=== PATIENT | female | born 1945 | race Two or more races ===

== ENCOUNTER 2016-06-14 10:00 | Inpatient (IN) | payer MEDICARE, BC ==
[~2016-06-14] VITALS: Ht 158.8 cm; Wt 67.7 kg
--- NOTE | ~2016-06-14 | OR ---
[facility]GE[facility] 70 Y [address] ROOM: [place] [address] LOCATION: [facility] ADMIT DATE: 06/26/2016 OR/Procedure Report DISCHARGE DATE: FAMILY PHYSICIAN: Tashi Richmond MD ATTENDING PHYSICIAN: DIXON PRIEST SURGEON: Dixon Priest MD BANDOLEER PACKER: Sanjeev Barrera PA-C. DATE OF PROCEDURE: 06/26/2016 PREOPERATIVE DIAGNOSIS: Left end-stage primary tricompartmental osteoarthritis. POSTOPERATIVE DIAGNOSIS: Left end-stage primary tricompartmental osteoarthritis. PROCEDURE: Left total knee arthroplasty. ANESTHESIA: Sedation with spinal and peripheral nerve blocks. ESTIMATED BLOOD LOSS: Less than 50. FLUIDS: See Anesthesia report. TOURNIQUET: Left proximal thigh at 250 mmHg for 93 minutes. SPECIMEN: None. COMPLICATIONS: None. DISPOSITION: Stable in PACU. COUNTS: All counts were correct. IMPLANTS: Pearl left total knee arthroplasty, Triathlon posterior stabilized size 1 femoral component, size 2 tibia baseplate, size 29 asymmetric patella, and size 2 11-mm thick X3 polyethylene, Pearl antibiotic Simplex bone cement. INDICATIONS: Ms. Rodríguez is a pleasant 70-year-old female who underwent a left total knee arthroplasty today. The risks, benefits, and alternatives pursuing the surgical events were discussed with the patient in detail. I marked the left lower extremity indicating the correct surgical site. Anesthesia was consulted for their perioperative evaluation of the patient. OPERATIVE REPORT IN DETAIL: The patient was taken from the holding area to PATIENT'S NAME: [facility] AGE: 70 Y [address] ROOM: [place] [address] LOCATION: [facility] ADMIT DATE: 06/26/2016 OR/Procedure Report DISCHARGE DATE: FAMILY PHYSICIAN: Tashi Richmond MD ATTENDING PHYSICIAN: DIXON PRIEST the operating room. A time-out was performed. A spinal anesthetic was administered. Peripheral nerve blocks have also been administered. The patient received 1 g of Ancef antibiotic for perioperative prophylaxis. She was placed supine on the operating room table, and all other bony prominences were padded. A nonsterile tourniquet was placed in the proximal thigh and a U- drape was placed beneath it. The left lower extremity was then prepped and draped in a sterile fashion. I turned my attention to the left knee. An Esmarch was used to exsanguinate the limb, and the tourniquet was inflated to 250 mmHg. I began with a median parapatellar incision to address the left knee. The incision was carried through skin and subcu tissue. I incised the capsule sharply with a knife. There were advanced degenerative changes noted mostly on the medial femoral condyle and medial tibial plateau. The patella fat pad was removed. The cruciate ligaments were excised using a Bovie electrocautery device. The knee was subsequently dislocated. I removed the medial and lateral menisci. I began preparing my femur. I began with the distal femoral cut. I then transitioned and made my proximal tibia cut. I used a gap balancing block and found that the knee was in the correct mechanical alignment. I then finished preparing my femoral component. The size was a size 1. The patient does have a small femur. I then prepared the tibia. I then made the box cut on the femoral side. I then placed my trial components with a size 9 polyethylene liner. The knee was stable though a little bit loose with varus to valgus stress. I placed a size 11 polyethylene liner and took the knee through range of motion and it was found to be stable through 0 to 135 degrees of flexion. The patella tracked well. The collaterals were stable. I then prepared my patella using the patella jig. I sized approximately 9 mm from the patella. I drilled for and placed an asymmetric patella button. The knee was taken through range of motion and found it to be stable. The patella tracked well. All of the trial components were subsequently removed. The knee was copiously irrigated with normal sterile saline solution via pulsatile lavage. The final tibia components, followed by the femoral components were cemented into place. A size 11 trial polyethylene liner was placed to allow the cement to cure. The knee was brought out to full extension and pressure was placed across the heel. Excess cement had been removed as the implants were placed. I then cemented the patella button in place and was allowed to dry with a clamp on it. After the cement had cured, I went back and removed the trial polyethylene liner. Any excess cement was removed from the joint and around the components. I placed a final size 11 polyethylene liner. The knee was taken through range of motion and found to achieve full range of motion with good patella tracking. The wound was then copiously irrigated with normal sterile saline solution via pulsatile lavage. A Stratafix barbed suture was used to approximate the capsule followed by 0 Vicryl suture to approximate the deeper subcutaneous tissue followed by 2-0 Vicryl to approximate the PATIENT'S NAME: IRVING [facility] AGE: 70 Y [address] ROOM: [address] [address] LOCATION: [facility] ADMIT DATE: 06/26/2016 OR/Procedure Report DISCHARGE DATE: FAMILY PHYSICIAN: Tashi Richmond MD ATTENDING PHYSICIAN: DIXON PRIEST superficial and subcutaneous tissue and rivera were used for skin. A sterile Mepilex placed over the incision. The tourniquet was let down. Webril was wrapped on the leg from the foot all the way up to the proximal thigh along with an Devyn bandage. The patient was then transferred from the operating room table onto the stretcher and brought to the recovery room in stable condition. There were no intraoperative complications noted. Of note, my PA, Sanjeev Barrera PA-C, played an integral role in the intraoperative care of this patient. This included preoperative positioning, intraoperative expert retraction, and closing and dressing functions. IMPRESSION: The patient is status post left total knee arthroplasty. PLAN: The patient will be weightbearing as tolerated in the left lower extremity. Physical Therapy and Occupational Therapy will be consulted postoperatively for early ambulation and prevention of deconditioning. Postoperative antibiotics were administered per routine. Postoperative pain control will be in the form of Percocet and IV morphine as needed for pain. The patient's primary care provider will manage the patient's postoperative care. I will continue to monitor the patient closely in the postoperative period. We will obtain a postoperative x-ray in the PACU of the left knee. Subparagraph. MD JONATHON JENSEN/modl /[id number] d: 06/26/16 1712 t: 06/27/16 0952, OPERATIVE SUMMARY
--- NOTE | ~2016-06-14 | DS ---
[facility]GE[facility] 70 Y [address] ROOM: [address] [address] LOCATION: [facility] ADMIT DATE: 06/26/2016 Discharge Summary DISCHARGE DATE: 06/28/2016 FAMILY PHYSICIAN: Tashi Richmond MD ATTENDING PHYSICIAN: Dixon Priest PRIMARY DIAGNOSIS: Left end-stage primary tricompartmental osteoarthritis. SECONDARY DIAGNOSES: Hypertension, osteoporosis, venous insufficiency in bilateral lower extremities, and vitamin D deficiency. PROCEDURE: Left total knee arthroplasty. HISTORY: The patient is a 70-year-old female who presents with advanced left knee end-stage primary tricompartmental osteoarthritis and associated severely compromised activities of daily living. The patient has decided to proceed with total knee arthroplasty after having been thoroughly counseled regarding the risks, benefits, limitations, and alternatives. Please refer to the outpatient clinical notes and admission history and physical for this patient. HOSPITAL COURSE: The patient underwent a left total knee arthroplasty on June 26, 2016, by Dr. Priest without complications. The patient did receive a spinal anesthesia along with peripheral nerve blocks. The patient received 24 hours of perioperative prophylactic antibiotics and remained hemodynamically stable, neurovascularly intact throughout the entire hospital course. The postoperative prophylactic deep vein thrombosis prophylaxis consisted of Xarelto, early mobilization, and pneumatic compression devices. Daily physical therapy for gait training, transfer training, range of motion, and quadriceps isometric exercises were received. The patient progressed well in physical therapy. On the date of discharge, June 28, 2016, the incision at the knee was healing well and showed no signs of infection. DISPOSITION: Home. DISCHARGE ACTIVITIES: The patient is to bear weight as tolerated with range of motion and quadriceps isometric exercises as instructed. The operative extremity is to be elevated at least 90% of the day. The Mepilex dressing is to be kept on until seen in followup. Dr. Priest is to be notified immediately if there is any increased pain, fever, chills, erythema, or drainage. DISCHARGE MEDICATIONS: New medications, 1. Colace 100 mg p.o. b.i.d. 2. Gabapentin 300 mg p.o. at h.s. PATIENT'S NAME: A[facility]HA [facility] AGE: 70 Y [address] ROOM: [address] [address] LOCATION: [facility] ADMIT DATE: 06/26/2016 Discharge Summary DISCHARGE DATE: 06/28/2016 FAMILY PHYSICIAN: Tashi Richmond MD ATTENDING PHYSICIAN: Dixon Priest 3. MiraLAX powder 17 g p.o. q.12 hours. 4. Xarelto 10 mg p.o. daily for a total to be taken until July 08, 2016. 5. Valium 2.5-5 mg orally every 6 hours as needed for muscle spasm. 6. Hydromorphone 2-4 mg every 4 hours as needed for pain. She was instructed to continue all her other preadmission medications as instructed by her Internal Medicine doctor. FOLLOWUP: Followup was with Dr. Richmond on June, at 9:30 a.m. for primary care followup. The patient is to follow up with Dr. Priest' office on July 09, 2016, at 3:40 p.m. for initial postoperative evaluation with x-rays of the left knee at that time. SCOT BOWER PA-C FOR DIXON PRIEST MD TJW/geo /[id number] d: 07/14/16 0259 t: 07/17/16 0844, DISCHARGE SUMMARY
[2016-06-14] MEDS ORDERED: VITAMIN D5000 UNIT PO (10:20)
[2016-06-14] MEDS ORDERED: NORVASC5 MG PO (10:20)
[2016-06-14] MEDS ORDERED: TRIAMTERENE-HC1 EAC1 PO (10:20)
[2016-06-14] MEDS ORDERED: CITRACAL950 MG PO (10:21)
[2016-06-14] MEDS ORDERED: TYLENOL EXTRA500 MG PO (10:22)
--- NOTE | 2016-06-26 16:18 | NUR ---
Introduced self/role to patient who lives in [place] with her Dev in 2-story home. Has 4 steps into home with railing on both sides; also has a ramp. Has walker, cane, crutches, long shoe horn, lift electrician, hand held shower with bath bench. Planned to return home when attended preop joint class. Reviewed and encouraged use of IS. Has ice to L knee; bilat TEDs and footpumps on. Will follow and assist as needs identified.
--- NOTE | 2016-06-26 17:10 | NUR ---
Significant Event: patient up to floor from pacu at 1130. tommie dressing to l) knee c/d/i. csm assessments wnl. pain well controlled with dilaudid 1 tab given at 1439. up to chair and commode with 1 assist, use of walker/gait belt. bilateral knee high teds and foot pumps on. ez wrap to l) knee. IS encouraged, up to 2000. incontinent of urine, cares done. Follow up:
--- NOTE | 2016-06-27 04:22 | NUR ---
Significant Event: Pt is alert and oriented. Up with A1 and walker. Very stiff moving. Ambulated to the BR. Voiding well. Drinking well. Fluids d/c'd at 2100. Dilaudid, toradol, and valium given at HS with relief. Tylenol and dilaudid given at 2300. Will medicate this am. LSC to dim in the bases. IS to 1500. Follow up:
[2016-06-27 05:59] LABS: HEMATOCRIT 34.9 % (33.0-46.0); HEMOGLOBIN 11.7 g/dL (10.0-15.0)
[2016-06-27 06:19] LABS: BLOOD UREA NITROGEN 17 mg/dL (6-24); CALCIUM 8.6 mg/dL (8.5-10.5); CHLORIDE 104 mMol/L (96-110); CO2 27 mMol/L (22-32); CREATININE 0.8 mg/dL (0.5-1.1); ESTIMATED GFR (MDRD EQUATION) > 60; SODIUM 138 mMol/L (135-145)
--- NOTE | 2016-06-27 10:35 | NUR ---
[id number] REPLACED BY [facility] Director Of Corporate Responsibility, Monitored assessments, medication administration and documentation
--- NOTE | 2016-06-27 15:51 | NUR ---
Significant Event: Pt is a/o. Has been up to BR with walker and one assist. Arlyn chavez @ 8106. Routine tylenol given. CSM WNL. Dressing c/d/i. EZ wrap on. Plans on discharge tomorrow. Follow up:
--- NOTE | 2016-06-28 04:28 | NUR ---
Patient alert and oriented x3, very pleasant and cooperative, pain issues at beginning of shift, required IV pain med but has rested well since, csm within normal, dressing clean dry intact, ambulates well one assit with walker and gaitbelt, plans to go home today
[2016-06-28] MEDS ORDERED: COLACE100 MG PO (11:40)
[2016-06-28] MEDS ORDERED: NEURONTIN300 MG PO (11:40)
[2016-06-28] MEDS ORDERED: MIRALAX17 GM PO (11:41)
[2016-06-28] MEDS ORDERED: XARELTO10 MG PO (11:42)
[2016-06-28] MEDS ORDERED: VALIUM5 MG PO (11:43)
[2016-06-28] MEDS ORDERED: DILAUDID 2MG(HYD2 MG PO (11:44)
--- NOTE | 2016-06-28 14:22 | NUR ---
D: patient dismissed to home spouse assistance. Taking anagesic prn for pain with relief. Mepilex dressing dry and intact to lt knee. CSM WNL.Ambulates with walker and one assist, gait steady. Patient and spouse voice understanding of dismissal instruction.
== END 2016-06-28 14:10 | disposition disaster alternative care site (69) | DRG 470 ==
LOC: G3N 06-26 05:52
PROVIDERS: Obstetrics & Gynecology Obstetrics; ADMIT Orthopaedic Surgery Adult Reconstructive Orthopaedic Surgery
PROC: 0SRD0J9 Replacement of Left Knee Joint with Synthetic Substitute, Cemented, Open Approach (ICD-10-PCS; principal; 2016-06-26)
DX: M17.12 Unilateral primary osteoarthritis, left knee (principal); I10 Essential (primary) hypertension; M81.0 Age-related osteoporosis without current pathological fracture; E55.9 Vitamin D deficiency, unspecified; I87.2 Venous insufficiency (chronic) (peripheral)
CPT/HCPCS: C1713; C1776; J0690; J1170; J1885; J2001; J2250; J2795; J3010; J7120